=== PATIENT | male | born 1960 | race Caucasian/White ===

== ENCOUNTER → 2018-02-11 | Outpatient (CLI) | payer BC ==
[~2018-02-11] MED LIST: ASA; BNZ20T PO; FENOFIBRATE; NEBI5TAB8 PO; [UNRECOGNIZED DRUG - OTHER]
--- NOTE | 2018-02-11 12:06 | Diagnostic Imaging Report ---
INDICATION: Upper extremity paresthesias. Cervical spine FINDINGS: AP and lateral views of the cervical spine shows normal vertebral body height and alignment. There are anterior osteophytes at C4-C5, C5-C6 and C6-C7. Disc spaces are well-maintained. There is no fracture seen. IMPRESSION: Early degenerative disc changes lower cervical spine. No acute abnormality seen. Dictated by: Dictated on workstation # [id number]
== END ==
LOC: RAD 11:07
PROVIDERS: ATTEND Family Medicine
DX: M47.812 Spondylosis without myelopathy or radiculopathy, cervical region (principal)
CPT/HCPCS: 72040

== ENCOUNTER → 2019-11-11 | Outpatient (CLI) | payer BC ==
--- NOTE | 2019-11-11 15:06 | Diagnostic Imaging Report ---
PROCEDURE: US left lower extremity venous. TECHNIQUE: Multiple real-time grayscale images were obtained over the left lower extremity in various projections. Additional duplex Doppler and color Doppler images were also obtained. INDICATION: Pain behind the knee. FINDINGS: There is no femoropopliteal deep venous thrombus. The superficial venous structures appeared patent. Normal color flow, compressibility, and normal waveforms are present. No solid or cystic mass is identified. IMPRESSION: Normal negative unilateral left lower extremity venous Doppler and ultrasound exam. Dictated by: Dictated on workstation # [id number]
== END ==
LOC: RAD 13:48
PROVIDERS: ATTEND Family Medicine
DX: M71.22 Synovial cyst of popliteal space [Baker], left knee (principal)

== ENCOUNTER → 2022-07-20 | Outpatient (CLI) | payer BC ==
[2022-07-20 10:25] LABS: EOSINOPHILS % (AUTO) 0 % (0-10); MEAN CORPUSCULAR HEMOGLOBIN 31 pg (25-34)
[2022-07-20 10:26] LABS: BASOPHILS % (AUTO) 0 % (0-10); HEMATOCRIT 47 % (40-54); HEMOGLOBIN 16.6 g/dL (13.3-17.7); LYMPHOCYTES # (AUTO) 0.6 10^3/uL (1.0-4.0); LYMPHOCYTES % (AUTO) 12 % (12-44); MEAN CORPUSCULAR HGB CONC 35 g/dL (32-36); MEAN CORPUSCULAR VOLUME 88 fL (80-99); MEAN PLATELET VOLUME 10.6 fL (9.0-12.2); MONOCYTES # (AUTO) 0.7 10^3/uL (0.0-1.0); MONOCYTES % (AUTO) 14 % (0-12); NEUTROPHILS # (AUTO) 3.8 10^3/uL (1.8-7.8); NEUTROPHILS % (AUTO) 73 % (42-75); PLATELET COUNT 120 10^3/uL (130-400); WHITE BLOOD COUNT 5.2 10^3/uL (4.3-11.0)
[2022-07-20 10:33] LABS: ALBUMIN 4.1 GM/DL (3.2-4.5)
[2022-07-20 10:34] LABS: POTASSIUM 3.9 MMOL/L (3.6-5.0)
[2022-07-20 10:35] LABS: CALCIUM 9.4 MG/DL (8.5-10.1)
[2022-07-20 10:36] LABS: TOTAL PROTEIN 7.1 GM/DL (6.4-8.2)
[2022-07-20 10:38] LABS: BILIRUBIN,TOTAL 0.9 MG/DL (0.1-1.0)
[2022-07-20 10:40] LABS: CREATININE SERUM 1.02 MG/DL (0.60-1.30)
[2022-07-20 10:41] LABS: SMEAR SCAN COMMENT YES
--- NOTE | 2022-07-20 14:34 | Diagnostic Imaging Report ---
EXAMINATION: Chest 2 view HISTORY: Elevated temp, coughing, congestion, weak. COMPARISON: None available. FINDINGS: Heart size and pulmonary vasculature are normal. There are mild interstitial opacities within the lung bases. There is a 1.4 cm opacity within the left lung base. Degenerative changes of the thoracic spine. Osseous structures are otherwise intact. No pleural effusion or pneumothorax. IMPRESSION: 1. Patchy interstitial opacities within the lower lungs which could represent atelectasis, edema, or pneumonia. 2. A 1.4 cm opacity within the left lung base which could be further evaluated with a CT chest with IV contrast in a nonemergent setting. Dictated by: Dictated on workstation # [id number]
== END ==
LOC: RAD 10:02
PROVIDERS: ATTEND Family Medicine
DX: R05.9 Cough, unspecified (principal); R09.89 Other specified symptoms and signs involving the circulatory and respiratory systems; R53.1 Weakness; R50.9 Fever, unspecified
CPT/HCPCS: 36415; 71046; 80053; 85025

== ENCOUNTER → 2022-07-25 | Outpatient (CLI) | payer BC ==
--- NOTE | 2022-07-25 08:42 | Diagnostic Imaging Report ---
EXAMINATION: Chest 2 view HISTORY: Pneumonia COMPARISON: 07/20/2022 FINDINGS: There is an unchanged mild left base airspace opacity. A 1.4 cm nodule projecting over the left base is unchanged. No pneumothorax. No edema. No pleural effusion. IMPRESSION: 1. Unchanged mild left base airspace opacity and left base nodule. Follow-up chest CT recommended. Dictated by: Dictated on workstation # [id number]
== END ==
LOC: RAD 07:32
PROVIDERS: ATTEND Family Medicine
DX: J18.9 Pneumonia, unspecified organism (principal); R91.8 Other nonspecific abnormal finding of lung field; R91.1 Solitary pulmonary nodule
CPT/HCPCS: 71046

== ENCOUNTER → 2022-07-26 | Outpatient (CLI) | payer BC ==
[~2022-07-26] MED LIST changes: +HOLD METFORMIN - RECEIVED CONTRAST 20 ML VIAL IV SCH; +IOHEXOL 350 MG/ML 100 ML (OMNIPAQUE 350) VIAL IV ONE; +NS 100 ML (IVPB) BAG IV ONE
--- NOTE | 2022-07-26 12:42 | Diagnostic Imaging Report ---
CLINICAL INDICATION: Repeat due to opacity in the left lung base. Nipple markers have been placed. EXAM: Chest x-ray, PA and lateral views. COMPARISON: Chest x-ray dated 07/25/2022. FINDINGS: Lungs/pleura: Stable 1.4 cm nodule in the left lung base. This does not correlate with the nipple markers. There is mild bibasilar atelectasis versus infiltrate. Otherwise, the lungs are clear There is no pneumothorax. There is no pleural effusion. Mediastinum: Unremarkable. Pulmonary vasculature: Unremarkable. Heart: Mild cardiomegaly. Bones/extrathoracic soft tissue: There are hypertrophic spurs involving the thoracic spine. IMPRESSION: 1: Stable 1.4 cm nodule involving the left lung base. This does not correlate with nipple markers. A CT scan of the chest would better evaluate. 2: There is mild bibasilar atelectasis versus infiltrate. 3: There is mild cardiomegaly with no significant pulmonary vascular congestion. Dictated by: Dictated on workstation # [id number]
--- NOTE | 2022-07-26 12:43 | Diagnostic Imaging Report ---
CT CHEST W TECHNIQUE: Multiple contiguous axial images were obtained through the chest without the use of intravenous contrast. All CT scans use one or more of the following dose optimizing techniques: automated exposure control, MA and/or KvP adjustment based on a patient size and exam type, or iterative reconstruction. INDICATION: Pulmonary nodule. COMPARISON: Chest radiograph from same day FINDINGS: Lungs and airway: There are multiple scattered calcified pulmonary nodules which have benign central calcification pattern. In the lingula, there is a 1.1 cm benign calcified nodule accounts for the radiographic abnormality. There are no suspicious pulmonary nodules present. Small amount of consolidations are present in the medial aspect of both lower lobes. Pleura: No pleural effusion or pneumothorax. Heart and mediastinum: Thyroid is normal. No supraclavicular or axillary lymphadenopathy. No mediastinal or hilar lymphadenopathy. Heart is normal in size without pericardial effusion. Normal caliber thoracic aorta. Upper abdomen: There is a 1.5 x 1.6 cm right adrenal nodule. No left adrenal nodule. Cholecystectomy. Musculoskeletal: No worrisome focal osseous lesions. IMPRESSION: 1. Multiple bilateral pulmonary nodules have benign calcification patterns and are indicative of old granulomatous infection. One of these nodules in the lingula accounts for the nodule seen on chest radiograph. These require no dedicated follow-up imaging as they are benign in nature. 2. Scattered bilateral lower lobe pulmonary consolidations could be due to multifocal pneumonia in appropriate setting. Alternatively, atelectasis may give this appearance. 3. Indeterminate right adrenal nodule. Recommend CT of the abdomen without and with IV contrast per the adrenal protocol. Dictated by: Dictated on workstation # [id number]
== END ==
LOC: RAD 11:32
PROVIDERS: ATTEND Family Medicine
DX: I51.7 Cardiomegaly (principal); J18.1 Lobar pneumonia, unspecified organism; E27.8 Other specified disorders of adrenal gland; R91.8 Other nonspecific abnormal finding of lung field
CPT/HCPCS: 71046; 71260

== ENCOUNTER → 2022-08-11 | Outpatient (CLI) | payer BC ==
--- NOTE | 2022-08-11 09:02 | Diagnostic Imaging Report ---
Procedure: CT abdomen with and without contrast. Technique: Multiple contiguous axial CT images of the abdomen were obtained prior to and after intravenous administration of iodinated contrast. Auto Exposure Controls were utilized during the CT exam to meet ALARA standards for radiation dose reduction. Date: August 11, 2022. Indication: 61-year-old male, adrenal nodule. Comparison: CT chest July 26, 2022. Findings: There is a 6 mm right middle lobe pulmonary nodule on axial image 12. There is a 4 mm right middle lobe pulmonary nodule on axial image 1. There is a 3 mm right upper lobe pulmonary nodule on axial image 3. There is a 4 mm right lower lobe pulmonary nodule on axial image 14. There is a left upper lobe centrally calcified benign granuloma on axial image 11. There is a 3 mm left upper lobe noncalcified nodule on axial image 12. There is a 6 mm left upper lobe pulmonary nodule which is calcified and consistent with granuloma on axial image 19. There is also a centrally calcified left lower lobe granuloma on axial image 22. There is a 3 mm noncalcified left lower lobe pulmonary nodule on axial image 15. These pulmonary nodules are present and unchanged since July 26, 2022. The heart is not enlarged. There is no identified pericardial effusion. The liver is unremarkable in size and contour. There is a 7 mm low-attenuation lesion in the dome of the liver on axial image 26 which has internal attenuation of 10 Hounsfield units consistent with benign cyst. There is a 3 mm low-attenuation lesion in the liver on axial image 36 which is too small to characterize. There is also a 3 mm low-attenuation lesion in the left lobe of the liver on axial image 62 which is too small to characterize. The main, right and left portal veins are patent. The gallbladder surgically absent. There is no identified intrahepatic or extrahepatic bile duct dilation. The main pancreatic duct is not abnormally dilated. Unremarkable appearance of the pancreatic parenchyma. The spleen is normal in size. There is a right adrenal nodule measuring 1.4 cm in size on axial image 55. Internal attenuation is 8 Hounsfield units on the precontrast portion of the exam. This is compatible with adrenal adenoma. There is a low-attenuation right renal lesion consistent with benign cyst on axial image 71 measuring 1.6 cm in size. There is a low-attenuation left renal mass on axial image 98 which measures 5.7 cm in size. This is consistent with benign cysts. There is a 2 mm nonobstructing right renal stone on axial image 81. The urinary collecting systems are not distended in their imaged extent. Imaged portions of the intestinal tract are not distended. There are atherosclerotic calcifications. There is no identified abnormally enlarged lymph node in the abdomen meeting CT size criteria for adenopathy. There are multilevel degenerative changes of the spine. There is no identified acute bony abnormality. Impression: 1. 1.4 cm right adrenal nodule compatible with adrenal adenoma. 2. Multiple bilateral pulmonary nodules unchanged since very recent CT chest on July 26, 2022. 3. 2 mm nonobstructing right renal stone. No ureteral stone or hydronephrosis. Dictated by: Dictated on workstation # [id number]
== END ==
LOC: RAD 07:37
PROVIDERS: ATTEND Family Medicine
DX: E27.8 Other specified disorders of adrenal gland (principal); N20.0 Calculus of kidney; R91.8 Other nonspecific abnormal finding of lung field
CPT/HCPCS: 74170